=== PATIENT | male | born 1995 | race Caucasian/White ===

== ENCOUNTER 2017-02-02 18:00 | Emergency (ER) | payer MEDICAID, OTHER ==
[~2017-02-02] VITALS: Ht 177.8 cm; Wt 90.0 kg
[2017-02-02 18:03] VITALS: BP 118/90; PULSE 79; RESP 13; TEMP 98; O2SAT 100
--- NOTE | 2017-02-02 18:08 | PD ---
HPI Chief Complaint: Injury Time Seen by Provider: 18:08 Travel History International Travel<30 days: No Contact w/Intl Traveler<30days: No Traveled to known affect area: No History of Present Illness HPI 20-year-old male presents to emergency room with complaint of right foot and ankle pain after injuring it on Sunday playing kickball. Reports bruising and swelling to the ankle and foot. Reports pain to the lateral aspect of the right ankle. Denies paresthesias, loss of sensation, decreased strength. Is ambulatory on the affected extremity. Reports decreased range of motion of the ankle. Reports pain is worse with inversion of the ankle. Denies fever, vomiting. Has been taking ibuprofen for symptom management. Describes the pain as a throbbing sensation. Rates pain /10. Has no other medical complaints. No known allergies. No other modifying factors or associated signs and symptoms. PFSH Social History Tobacco Use: No Allergies-Medications (Allergen,Severity, Reaction): Coded Allergies: No Known Allergies (Unverified , 02/02/17) Reported Meds & Prescriptions Reported Meds & Active Scripts Active Ibuprofen 600 Mg Tab 600 Mg PO Q6H PRN Review of Systems Except as stated in HPI: all other systems reviewed are Neg Physical Exam Narrative GENERAL: Well-nourished, well-developed male patient, in no acute distress SKIN: Warm and dry. HEAD: Atraumatic. Normocephalic. EYES: Pupils equal and round. No scleral icterus. No injection or drainage. ENT: Mucosa pink and moist. Airway patent. NECK: Trachea midline. CARDIOVASCULAR: Regular rate. RESPIRATORY: No accessory muscle use. GASTROINTESTINAL: Rounded. MUSCULOSKELETAL: Right ankle with point tenderness on palpation to the lateral malleolar zone; ecchymosis noted to the lateral and medial aspect of the ankle; ecchymosis noted to the dorsal aspect of the foot just below the toes to the metatarsal region; without erythema; with ankle edema and foot edema; no obvious deformity; 2+ pedal pulse; sensory intact. Patient is ambulatory in the room on the affected extremity. No obvious deformities. No clubbing. No cyanosis. No edema. NEUROLOGICAL: Awake and alert. Oriented 3. No obvious cranial nerve deficits. Motor grossly within normal limits. Normal speech. PSYCHIATRIC: Appropriate mood and affect; insight and judgment normal. Data Data Last Documented VS Vital Signs Date Time Temp Pulse Resp B/P (MAP) Pulse Ox O2 Delivery O2 Flow Rate FiO2 02/02/17 19:42 02/02/17 18:15 Room Air 02/02/17 18:03 98.0 79 13 100 Orders Orders Ankle, Complete ([id number]) (02/02/17 18:08) Foot, Complete ([id number]) (02/02/17 18:08) Splint Or Brace Apply/Monitor (02/02/17 19:14) Ed Discharge Order (02/02/17 19:21) Fiberglass Short Leg Splint Ad (02/02/17 ) Fiberglass Sugartong Sp Ad Sl (02/02/17 ) MDM Medical Decision Making Medical Screen Exam Complete: Yes Emergency Medical Condition: Yes Medical Record Reviewed: Yes Differential Diagnosis Ankle sprain, foot sprain, ankle fracture, foot fracture Narrative Course 21-year-old male with right ankle and foot injury. I offered the patient pain medication and he declined. Right foot and ankle x-ray ordered. 1899: Report given to Chico Ríos PA-C at change of shift. See his note for patient final disposition. Referrals: Surgical Services Coordinator Primary Care Physician Additional Instructions: Tylenol or ibuprofen as directed and as needed for pain and inflammation Rest, ice, compress, and elevate extremity to decrease pain and inflammation Ankle Brace for support Crutches for support Avoid aggravating activity; increase activity as tolerated Follow-up with primary care provider Return to the emergency department immediately with worsening of symptoms Med/Other Pt SpecificInfo: Prescription(s) given Scripts Ibuprofen (Ibuprofen) 600 Mg Tab 600 MG PO Q6H Y for PAIN, #20 TAB 0 Refills Prov: Angela Kaufman 02/02/17 Disposition: 01 DISCHARGE HOME Condition: Stable Angela Kaufman Feb 02, 2017 18:08
[2017-02-02] MEDS ORDERED: IBUP-232 PO (18:45)
--- NOTE | 2017-02-02 19:02 | RADRPT ---
EXAM DATE/TIME: 02/02/2017 18:28 [facility] COMPARISON: No previous studies available for comparison. INDICATIONS : Right foot pain after patient fell last night MEDICAL HISTORY : None. SURGICAL HISTORY : None. ENCOUNTER: Initial ACUITY: 1 day PAIN SCORE: 3/10 LOCATION: Right lateral foot FINDINGS: Three view examination of the right foot demonstrates no soft tissue swelling, dislocation, or fractu re. The tarsal bones appear intact. The interphalangeal and metatarsophalangeal joints are intact. The calcaneus is intact. Bony mineralization is normal. CONCLUSION: Unremarkable examination of the right foot. Js Ruiz MD on February 02, 2017 at 19:00 Board Certified Radiologist. This report was verified electronically.
--- NOTE | 2017-02-02 19:06 | RADRPT ---
EXAM DATE/TIME: 02/02/2017 18:31 [facility] COMPARISON: No previous studies available for comparison. INDICATIONS : Right ankle pain after patient fell last night MEDICAL HISTORY : None. SURGICAL HISTORY : None. ENCOUNTER: Initial ACUITY: 1 day PAIN SCORE: 3/10 LOCATION: Right lateral ankle FINDINGS: There is lateral soft tissue swelling. There is a lucency at the medial malleolus and medial talus wh ich may represent a previous fracture, possibly subacute. Ankle mortise appears intact. CONCLUSION: 1. Questionable acute or subacute avulsion injury medial malleolus and medial talus. Soft tissue swel ling and laterally. Js Ruiz MD on February 02, 2017 at 19:01 Board Certified Radiologist. This report was verified electronically.
--- NOTE | 2017-02-02 19:21 | PD ---
Physical Exam Narrative Patient signed out to me by previous provider pending x-ray results. Please see her documentation for full H&P. Data Data Last Documented VS Vital Signs Date Time Temp Pulse Resp B/P (MAP) Pulse Ox O2 Delivery O2 Flow Rate FiO2 02/02/17 19:42 02/02/17 18:15 Room Air 02/02/17 18:03 98.0 79 13 100 Orders Orders Ankle, Complete ([id number]) (02/02/17 18:08) Foot, Complete ([id number]) (02/02/17 18:08) Splint Or Brace Apply/Monitor (02/02/17 19:14) Ed Discharge Order (02/02/17 19:21) MDM Supervised Visit with KEVIN: No Interpretation(s) Last Impressions Foot X-Ray 02/02/171807 Signed Impressions: Service Date/Time: Thursday, February 02, 2017 18:28 - CONCLUSION: Unremarkable examination of the right foot. Js Ruiz MD Ankle X-Ray 02/02/171807 Signed Impressions: Service Date/Time: Thursday, February 02, 2017 18:31 - CONCLUSION: 1. Questionable acute or subacute avulsion injury medial malleolus and medial talus. Soft tissue swelling and laterally. Js Ruiz MD Narrative Course Patient in no obvious distress upon re-evaluation. All pertinent Radiology result(s) discussed with patient/family. Discussed patient with Dr. Mckinney prior discharge, who is in agreement with plan of care and disposition. Any questions/concerns in reference to patient diagnosis/condition discussed and clarified prior to patient's discharge. Reinforced sheer importance of close follow up with optical instruments supervisor or orthopedic. Instructed patient to return to ED immediately, if symptoms return/worsen. Patient showed understanding of above instructions. Further instructions and recommendations were detailed in discharge paperwork. Patient ambulated without difficulty out of ED at discharge with crutches. Diagnosis Primary Impression: Closed left ankle fracture Qualified Codes: S82.892A - Other fracture of left lower leg, initial encounter for closed fracture Referrals: Lucian Wood DPM, Todd Andrew MD Clinical Research Nurse Coordinator Primary Care Physician Patient Instructions: Ankle Fracture (ED), Crutch Instructions (ED), General Instructions, Splint Care (DC) Additional Instruction: Follow-up with optical instruments supervisor or orthopedic doctor as soon as possible for reevaluation. Take all medication as prescribed. Use [id number] Tylenol as needed for additional pain control. Follow instructions on the packaging. Do not stand or put any weight on your right ankle until reevaluated by specialist. Apply ice to affected area 20 minutes prior as needed for pain. Elevate affected area to decrease pain and swelling. Return to the emergency department if symptoms get worse. Med/Other Pt SpecificInfo: Prescription(s) given Scripts Ibuprofen (Ibuprofen) 600 Mg Tab 600 MG PO Q6H Y for PAIN, #20 TAB 0 Refills Prov: Angela Kaufman 02/02/17 Disposition: 01 DISCHARGE HOME Condition: Stable Serjio Ríos Feb 02, 2017 19:21
--- NOTE | 2017-02-02 19:21 | PD ---
Physical Exam Narrative Patient signed out to me by previous provider pending x-ray results. Please see her documentation for full H&P. Data Data Last Documented VS Vital Signs Date Time Temp Pulse Resp B/P (MAP) Pulse Ox O2 Delivery O2 Flow Rate FiO2 02/02/17 19:42 02/02/17 18:15 Room Air 02/02/17 18:03 98.0 79 13 100 Orders Orders Ankle, Complete ([id number]) (02/02/17 18:08) Foot, Complete ([id number]) (02/02/17 18:08) Splint Or Brace Apply/Monitor (02/02/17 19:14) Ed Discharge Order (02/02/17 19:21) MDM Supervised Visit with KEVIN: No Interpretation(s) Last Impressions Foot X-Ray 02/02/171807 Signed Impressions: Service Date/Time: Thursday, February 02, 2017 18:28 - CONCLUSION: Unremarkable examination of the right foot. Js Ruiz MD Ankle X-Ray 02/02/171807 Signed Impressions: Service Date/Time: Thursday, February 02, 2017 18:31 - CONCLUSION: 1. Questionable acute or subacute avulsion injury medial malleolus and medial talus. Soft tissue swelling and laterally. Js Ruiz MD Narrative Course Patient in no obvious distress upon re-evaluation. All pertinent Radiology result(s) discussed with patient/family. Discussed patient with Dr. Mckinney prior discharge, who is in agreement with plan of care and disposition. Any questions/concerns in reference to patient diagnosis/condition discussed and clarified prior to patient's discharge. Reinforced sheer importance of close follow up with nurses supervisor or orthopedic. Instructed patient to return to ED immediately, if symptoms return/worsen. Patient showed understanding of above instructions. Further instructions and recommendations were detailed in discharge paperwork. Patient ambulated without difficulty out of ED at discharge with crutches. Diagnosis Primary Impression: Closed left ankle fracture Qualified Codes: S82.892A - Other fracture of left lower leg, initial encounter for closed fracture Referrals: Lucian Wood DPM, Todd Andrew MD Soil Science Professor Primary Care Physician Patient Instructions: Ankle Fracture (ED), Crutch Instructions (ED), General Instructions, Splint Care (DC) Additional Instruction: Follow-up with nurses supervisor or orthopedic doctor as soon as possible for reevaluation. Take all medication as prescribed. Use [id number] Tylenol as needed for additional pain control. Follow instructions on the packaging. Do not stand or put any weight on your right ankle until reevaluated by specialist. Apply ice to affected area 20 minutes prior as needed for pain. Elevate affected area to decrease pain and swelling. Return to the emergency department if symptoms get worse. Med/Other Pt SpecificInfo: Prescription(s) given Scripts Ibuprofen (Ibuprofen) 600 Mg Tab 600 MG PO Q6H Y for PAIN, #20 TAB 0 Refills Prov: Angela Kaufman 02/02/17 Disposition: 01 DISCHARGE HOME Condition: Stable Serjio Ríos Feb 02, 2017 19:21
--- NOTE | 2017-02-02 19:21 | PD ---
Physical Exam Narrative Patient signed out to me by previous provider pending x-ray results. Please see her documentation for full H&P. Data Data Last Documented VS Vital Signs Date Time Temp Pulse Resp B/P (MAP) Pulse Ox O2 Delivery O2 Flow Rate FiO2 02/02/17 19:42 02/02/17 18:15 Room Air 02/02/17 18:03 98.0 79 13 100 Orders Orders Ankle, Complete ([id number]) (02/02/17 18:08) Foot, Complete ([id number]) (02/02/17 18:08) Splint Or Brace Apply/Monitor (02/02/17 19:14) Ed Discharge Order (02/02/17 19:21) MDM Supervised Visit with KEVIN: No Interpretation(s) Last Impressions Foot X-Ray 02/02/171807 Signed Impressions: Service Date/Time: Thursday, February 02, 2017 18:28 - CONCLUSION: Unremarkable examination of the right foot. Js Ruiz MD Ankle X-Ray 02/02/171807 Signed Impressions: Service Date/Time: Thursday, February 02, 2017 18:31 - CONCLUSION: 1. Questionable acute or subacute avulsion injury medial malleolus and medial talus. Soft tissue swelling and laterally. Js Ruiz MD Narrative Course Patient in no obvious distress upon re-evaluation. All pertinent Radiology result(s) discussed with patient/family. Discussed patient with Dr. Mckinney prior discharge, who is in agreement with plan of care and disposition. Any questions/concerns in reference to patient diagnosis/condition discussed and clarified prior to patient's discharge. Reinforced sheer importance of close follow up with country singer or orthopedic. Instructed patient to return to ED immediately, if symptoms return/worsen. Patient showed understanding of above instructions. Further instructions and recommendations were detailed in discharge paperwork. Patient ambulated without difficulty out of ED at discharge with crutches. Diagnosis Primary Impression: Closed left ankle fracture Qualified Codes: S82.892A - Other fracture of left lower leg, initial encounter for closed fracture Referrals: Lucian Wood DPM, Todd Andrew MD Business Objects Developer Primary Care Physician Patient Instructions: Ankle Fracture (ED), Crutch Instructions (ED), General Instructions, Splint Care (DC) Additional Instruction: Follow-up with country singer or orthopedic doctor as soon as possible for reevaluation. Take all medication as prescribed. Use [id number] Tylenol as needed for additional pain control. Follow instructions on the packaging. Do not stand or put any weight on your right ankle until reevaluated by specialist. Apply ice to affected area 20 minutes prior as needed for pain. Elevate affected area to decrease pain and swelling. Return to the emergency department if symptoms get worse. Med/Other Pt SpecificInfo: Prescription(s) given Scripts Ibuprofen (Ibuprofen) 600 Mg Tab 600 MG PO Q6H Y for PAIN, #20 TAB 0 Refills Prov: Angela Kaufman 02/02/17 Disposition: 01 DISCHARGE HOME Condition: Stable Serjio Ríos Feb 02, 2017 19:21
== END 2017-02-02 19:43 | disposition home or self-care (01) ==
LOC: NEPK 18:00 → NEPC 19:43
DX: S82.891A Other fracture of right lower leg, initial encounter for closed fracture (principal); W18.30XA Fall on same level, unspecified, initial encounter; Y93.6A Activity, physical games generally associated with school recess, summer camp and children
CPT/HCPCS: 29515; 73610; 73630; 99283; E0113